=== PATIENT | female | born 1985 | race Caucasian/White ===

== ENCOUNTER 2020-09-02 12:48 | Emergency (ER) | payer OTHER ==
[~2020-09-02] VITALS: Ht 170.2 cm; Wt 81.7 kg
[2020-09-02] MEDS ORDERED: SUPER THERAVIT1 EACH PO (13:02)
[2020-09-02] MEDS ORDERED: HYDROCODON-ACE1 EAC7 PO (14:10)
[2020-09-02] MEDS ORDERED: NAPROSYN500 MG PO (14:10)
[2020-09-02 14:25] VITALS: BP 160/93
== END 2020-09-02 14:31 | disposition home or self-care (01) ==
LOC: M.ERS 12:48
DX: M25.562 Pain in left knee (principal); Z79.899 Other long term (current) drug therapy; X50.1XXA Overexertion from prolonged static or awkward postures, initial encounter; Y93.89 Activity, other specified; Y92.89 Other specified places as the place of occurrence of the external cause; Y99.8 Other external cause status